=== PATIENT | female | born 1985 | race Caucasian/White ===

== ENCOUNTER 2022-06-28 13:47 | Outpatient (CLI) | payer BC, SELFPAY ==
--- OUTSIDE RECORDS SUMMARY | 2022-06-28 13:50 | XMS_ITS ---
:1985 Author Care Team Providers Name Role Phone Ledy Riley Primary Care Provider Unavailable Allergies Code Code System Name Reaction Severity Status Onset NKDA ? Medications No Medications Reported Problems No Known Problems Procedures None recorded. Results Lab Results Date Name Specimen Result Interpretation Description Value Range Status Address ? 02/14/2021 SARS CoV 2 RNA, Nose (nasal ? Result negative ? ? [facility] QL, KRISSY+probe, passage) [facility] [place]: [address] , [place] Past Encounters 02/14/2021 Exposure to SARS-CoV-2; Acute Upper Resp iratory Infection Ledy Riley PA-C: [address], [place] [address], Ph. Social History None recorded. Vaccine List None recorded. Plan of Care Patient Instructions Discussed rapid covid results with alexia ent. Patient appears well, no immediate concerns. Patient understands and agrees with treatment plan and instructions. Symptom management discussed to continue OTC cough/cold medications as needed. Medication side effects discussed. Discu ssed risks? benefits? alternatives? side effects of treatment. If symptoms progre ss or worsen, patient should proceed to the emergency room immediately. All question s answered. Reminders Provider Appointments None recorded. ? ? Lab None recorded. ? ? Referral None recorded. ? ? Procedures None recorded. ? ? Surgeries None recorded. ? ? Imaging None recorded. ? ? Vitals Blood Pressure 114/83 mm[Hg]
--- NOTE | 2022-06-28 14:00 | CRLHL7_ITS ---
For Patients: As a result of the Century Cures Act, medical imaging exams and procedure reports are released immediately into your electronic medical record. You may view this report before your referring provider. If you have questions, please contact your health care provider. INDICATION: First trimester scan, establish dates. COMPARISON: None. TECHNIQUE: Real-time frederick-scale imaging of the pelvis was performed. FINDINGS: Intrauterine gestational sac is present with mean sac diameter 19 millimeters corresponding to a 6 week 5 day gestation. pole is present with crown-rump length 5 millimeters. No heart tones. No subchorionic hemorrhage. No ectopic . No pelvic free fluid. scar noted. Right ovary unremarkable. Left ovary not visualized. IMPRESSION: Intrauterine with pole present measuring 5 millimeters without heart tones. Follow-up in 11-14 days recommended. Dictated by Lopez Pyle MD @ 06/28/2022 4:13:42 PM (Electronically Signed)
== END 2022-06-28 13:48 | disposition home or self-care (01) ==
LOC: US 13:48
PROVIDERS: PCP Family Medicine; Visit Provider Registered Nurse
DX: Z34.91 Encounter for supervision of normal pregnancy, unspecified, first trimester (principal)
CPT/HCPCS: 76817; 81003; 81015; 84702

== ENCOUNTER 2022-06-28 15:32 | Outpatient (CLI) | payer BC, SELFPAY ==
--- OUTSIDE RECORDS SUMMARY | 2022-06-28 15:36 | XMS_ITS ---
[...] [facility] QL, KRISSY+probe, passage) [facility] [place]: [address] , [place] Past Encounters 02/14/2021 Exposure to SARS-CoV-2; Acute Upper Resp iratory Infection Ledy Riley PA-C: [address], [place] [address], Ph. Social History None recorded. Vaccine List [...]
[2022-06-28 16:20] LABS: Appearance Urine Clear (Clear); Bilirubin Urine Negative (Negative); Blood Urine 3+ (Negative); Color Urine Yellow (Yellow); Glucose Urine Negative (Negative); Ketones Urine Negative (Negative); Leukocyte Esterase Urine Trace (Negative); Nitrite Urine Negative (Negative); Protein Urine Negative (Negative)
[2022-06-28 16:25] LABS: WBC Urine 0-2 (0-5)
[2022-06-28 16:26] LABS: Bacteria Urine Few; Squamous Epithelial Cell Urine Few (None-Few)
== END 2022-06-28 15:33 | disposition home or self-care (01) ==
PROVIDERS: PCP Family Medicine; Visit Provider Registered Nurse
DX: O20.9 Hemorrhage in early pregnancy, unspecified (principal); R82.90 Unspecified abnormal findings in urine
CPT/HCPCS: 81003; 81015; 84702; 86850; 86900; 86901; 87086

== ENCOUNTER 2022-06-30 13:00 | Outpatient (CLI) | payer BC, SELFPAY ==
--- OUTSIDE RECORDS SUMMARY | 2022-06-30 13:01 | XMS_ITS ---
[...] [facility] QL, KRISSY+probe, passage) [facility] [place]: [address] , [place] Past Encounters 02/14/2021 Exposure to SARS-CoV-2; Acute Upper Resp iratory Infection Ledy Riley PA-C: [address], [place] [address], Ph. Social History None recorded. Vaccine List [...]
== END 2022-06-30 13:01 | disposition home or self-care (01) ==
LOC: NFLDREF 13:00
PROVIDERS: PCP Family Medicine; Visit Provider Registered Nurse
DX: O20.9 Hemorrhage in early pregnancy, unspecified (principal)
CPT/HCPCS: 84702

== ENCOUNTER 2022-07-07 13:14 | Outpatient (CLI) | payer BC, SELFPAY ==
--- OUTSIDE RECORDS SUMMARY | 2022-07-07 13:34 | XMS_ITS ---
[...] [facility] QL, KRISSY+probe, passage) [facility] [place]: [address] , [place] Past Encounters 02/14/2021 Exposure to SARS-CoV-2; Acute Upper Resp iratory Infection Ledy Riley PA-C: [address], [place] [address], Ph. Social History None recorded. Vaccine List [...]
[2022-07-07 15:11] LABS: HCG Quantitative* 76.97 mIU/mL
== END 2022-07-07 13:15 | disposition home or self-care (01) ==
LOC: NFLDREF 13:15
PROVIDERS: PCP Family Medicine; Visit Provider Registered Nurse
DX: O03.9 Complete or unspecified spontaneous abortion without complication (principal)
CPT/HCPCS: 84702

== ENCOUNTER 2022-07-14 11:54 | Outpatient (CLI) | payer BC, SELFPAY ==
[2022-07-14 15:36] LABS: HCG Quantitative* 10.62 mIU/mL
== END 2022-07-14 11:55 | disposition home or self-care (01) ==
LOC: NFLDREF 14:25
PROVIDERS: PCP Family Medicine; Visit Provider Registered Nurse
DX: O03.9 Complete or unspecified spontaneous abortion without complication (principal)
CPT/HCPCS: 84702

== ENCOUNTER 2022-10-13 14:13 | Outpatient (CLI) | payer BC, SELFPAY ==
[2022-10-13 18:02] LABS: Cholesterol* 220 mg/dL (90-199); Glucose* 98 mg/dL (60-115)
[2022-10-13 18:03] LABS: HDL Cholesterol* 42 mg/dL (>=50); LDL Cholesterol Calculated 144 mg/dL (<100); Triglycerides* 169 mg/dL (40-149)
== END 2022-10-13 14:14 | disposition home or self-care (01) ==
PROVIDERS: PCP Family Medicine; Visit Provider Registered Nurse
DX: Z01.419 Encounter for gynecological examination (general) (routine) without abnormal findings (principal); R53.83 Other fatigue; Z13.6 Encounter for screening for cardiovascular disorders; Z13.1 Encounter for screening for diabetes mellitus
CPT/HCPCS: 80061; 82947; 84443

== ENCOUNTER 2022-10-25 18:00 | Emergency (ER) | payer BC, SELFPAY ==
[2022-10-25 18:28] VITALS: BP 171/77; PULSE 94; RESP 20; TEMP 36.9; O2SAT 100; BMI 32.4
[2022-10-25 19:34] VITALS: BP 142/87; PULSE 85; RESP 18; O2SAT 100
[2022-10-25 21:04] VITALS: BP 127/73; BP 144/95; BP 147/101; PULSE 101; PULSE 105; PULSE 98
[2022-10-25 21:17] LABS: Basophils Absolute Auto 0.01 K/uL (0.00-0.30); Basophils Percent Auto 0.1 % (0.0-3.0); Eosinophils Absolute Auto 0.11 K/uL (0.00-0.50); Eosinophils Percent Auto 1.5 % (0.0-7.0); Hematocrit 44.1 % (33.0-51.0); Hemoglobin* 14.5 gm/dL (12.0-16.0); Immature Granulocytes Abs Auto 0.01 K/uL (0.00-0.30); Immature Granulocytes Pct Auto 0.1 %; Lymphocytes Percent Auto 16.8 % (20-44); Mean Corpuscular HGB Conc 33 gm/dL (32-36); Mean Corpuscular Hemoglobin 28 pg (26-34); Mean Corpuscular Volume 87 fL (80-100); Monocytes Percent Auto 5.1 % (0.0-11.0); Neutrophils Percent Auto 76.4 % (42.0-72.0); Platelet Count* 274 K/uL (140-440); RDW Coefficient of Variation % 12.9 % (11.5-15.5); White Blood Count* 7.43 K/uL (4.50-11.00)
[2022-10-25] MEDS: 0.9 % SODIUM CHLORIDE 1000 ml 1,000 ML IV (21:18)
[2022-10-25 21:19] LABS: Slide Review Reflex No
--- NOTE | 2022-10-25 21:20 | ED.NURSE ---
RADAR ENGINEER swab
[2022-10-25 21:31] LABS: Chloride* 102 mmol/L (96-114); Potassium* 3.7 mmol/L (3.6-5.1); Sodium* 140 mmol/L (135-149)
[2022-10-25 21:34] LABS: Creatinine* 0.6 mg/dL (0.5-1.5); Est. Creatinine Clearance* 106.19; Estimated Glomerular Filt Rate 118 ml/min
[2022-10-25 21:35] LABS: Bilirubin Direct* 0.2 mg/dL (0.0-0.5); Bilirubin Total* 0.6 mg/dL (0.1-1.5); Blood Urea Nitrogen* 11 mg/dL (5-24); Calcium* 9.8 mg/dL (8.4-10.6); Carbon Dioxide* 29 mmol/L (20-32); Glucose* 110 mg/dL (60-115); Total Protein* 9.2 g/dL (6.0-8.3)
[2022-10-25 21:36] LABS: Alanine Aminotransferase* 29 U/L (4-35); Alkaline Phosphatase* 70 U/L (40-150); Aspartate Amino Transferase* 27 U/L (12-35)
[2022-10-25 21:42] LABS: Appearance Urine Clear (Clear); Bilirubin Urine Negative (Negative); Blood Urine Negative (Negative); Color Urine Yellow (Yellow); Glucose Urine Negative (Negative); Ketones Urine Negative (Negative); Leukocyte Esterase Urine Trace (Negative); Nitrite Urine Negative (Negative); Protein Urine Negative (Negative); Specific Gravity Urine 1.015 (1.000-1.030); Urobilinogen Urine 0.2 (0.2-1.0); pH Urine 6.5 (5.0-8.5)
[2022-10-25 21:47] LABS: HCG Qualitative* Negative (Negative)
[2022-10-25 21:47] LABS: C Reactive Protein* < 0.5 mg/dL (0.5-1.0)
[2022-10-25 21:53] LABS: PCR FLU A Negative PCR FLU A (Negative); PCR FLU B Negative PCR FLU B (Negative)
[2022-10-25 21:56] LABS: RBC Urine 0-2 (0-2)
[2022-10-25 21:56] LABS: SARS PCR* Negative SARS-CoV-2 (Negative)
--- NOTE | 2022-10-25 22:44 | ED_ITS ---
HPI - General Adult General Chief complaint: Neck Injury/Pain Stated complaint: Dizziness/Neck Pain Time Seen by Provider: 10/25/22 20:31 History of Present Illness HPI narrative: 36-year-old woman here with a number of concerns. It seems that I believe today has started to have more discomfort in her low neck. She indicates the low neck musculature where she will turn and feel like maybe something shifts a little bit. She is worried about a slipped disc. There was no traumatic event beyond something maybe 10 years ago. Does also struggle with ?sciatica? with some aching pain somewhat in the right buttock and down the back of thigh and there was a more remote believe in high school dance injury. Has been struggling with fatigue I believe on and off for the last 3 years perhaps since the murder of her brother. Became sick at the end of last year with a variety of illnesses; she thinks she probably did have COVID maybe influenza or something else but was never tested. She is not vaccinated for COVID it appears due to concerns of potential vaccine reaction or side effects. Over the last few weeks she is also experiencing intermittent weakness in the extremities. Sounds like it is symmetrical. Some tingliness or weakness in her thighs. Sounds like is worried that might have MS. The there is no family history of this. Regarding the neck issue may have been exacerbated by holding her 1-year-old in a car seat. It appears that also has some concerns that might have meningitis. Doesn't have a headache at this time but did recently have a headache. No focal weakness or radiating down her arms. Not exactly dizziness but as if has been on the gravitron; a subtle sense of dizziness intermittently for many weeks. Fever. She does no seen by primary care yesterday. Unclear what labs were actually collected but does believe at least TSH was. Sounds as though there will be exploring some alternative medicine and potentially treatment evaluation as well. Is worried also that might have a urinary tract infection though would consider herself asymptomatic in that regard though sounds as though has chronic urgency. Related Data Home Medications Medication Instructions Recorded Confirmed No Known Home Medications 10/13/22 10/13/22 Allergies Allergy/AdvReac Type Severity Reaction Status Date / Time bupropion AdvReac Intermediate Insomnia Verified 10/13/22 13:21 olanzapine AdvReac Unknown Verified 01/06/23 13:21 Dust mites Allergy Intermediate SOB, runny Uncoded 10/13/22 13:21 nose Cat hair extract Allergy Mild runny nose Uncoded 10/13/22 13:21 Pollen Allergy Mild ears hurt Uncoded 10/13/22 13:21 tree mold Allergy Mild ear pain Uncoded 10/13/22 13:21 Review of Systems Status of ROS: Reports: 10 or more systems reviewed and unremarkable except as noted in History and below [facility] Medical History Anxiety state (08/10/11) Frequent urinary tract infections (10/31/10) Major depressive disorder, recurrent, with catatonic features Miscarriage MRSA (methicillin resistant staph aureus) culture positive White classification A2 gestational diabetes mellitus (GDM) Surgical History History of cholecystectomy History of varicose vein ligation Status post primary low transverse section (10/14/21) Vaginal delivery [place] teeth extracted Family History Mother Heart disease Bleeding disorder High blood pressure Maternal Grandmother Stroke FH: mental illness Paternal Grandmother No problems noted. Paternal Grandfather Stomach cancer Maternal Grandfather Bleeding disorder High blood pressure Aunt Bleeding disorder Uncle High blood pressure Brother Abuse, drug or alcohol Social History Smoking Status: Former smoker Second hand tobacco smoke exposure: No How often do you have a drink containing alcohol: never AUDIT-C Alcohol total score: 0 Non-prescribed substance use: denies use Little interest or pleasure in doing things: not at all Feeling down, depressed, or hopeless: not at all Exam Narrative: Exam Narrative: Is pleasant. Speaking easily, fluidly. Breathing easily. Head is atraumatic. Cranial nerves 2-12 look to be intact. There is no nystagmus. No meningeal signs are evident. Not clearly able to reproduce dizziness. TMs bilaterally are clear. Neck is supple without midline tenderness. Perhaps a little sore to palpation in the right low paracervical/trapezial musculature. She has no weakness in extremities with intact sensation. Well perfused peripherally without lower extremity edema. Heart with a regular rate and rhythm. Abdomen is soft and nontender. There is no flank pain. There is no pain to palpation in the SI joint. Some discomfort perhaps to palpation in the right piriformis musculature area. Const: Vital Signs, click to edit/add: Vital Signs - 24 hr 10/25/22 18:28 10/25/22 19:34 10/25/22 21:04 Temperature 98.5 F Pulse Rate [Pulse Oximeter] 94 85 Pulse Rate [orthos tatic lying Pulse Oximeter] 98 Pulse Rate [orthos tatic sitting Puls e Oximeter] 101 H Pulse Rate [orthos tatic standing Pul se Oximeter] 105 H Respiratory Rate 20 18 Blood Pressure [Ri ght Upper Arm] 171/77 H 142/87 H Blood Pressure [or thostatic lying Ri ght Arm] 127/73 Blood Pressure [or thostatic sitting Right Arm] 144/95 H Blood Pressure [or thostatic standing Right Arm] 147/101 H Pulse Oximetry 100 100 Oxygen Delivery Me thod Room Air Room Air 10/25/22 23:00 Temperature Pulse Rate [Pulse Oximeter] Pulse Rate [orthos tatic lying Pulse Oximeter] 85 Pulse Rate [orthos tatic sitting Puls e Oximeter] 86 Pulse Rate [orthos tatic standing Pul se Oximeter] 91 Respiratory Rate Blood Pressure [Ri ght Upper Arm] Blood Pressure [or thostatic lying Ri ght Arm] 133/80 Blood Pressure [or thostatic sitting Right Arm] 131/85 Blood Pressure [or thostatic standing Right Arm] 139/89 Pulse Oximetry Oxygen Delivery Me thod Documenting provider has reviewed patient's vital signs: yes Course Vital Signs Vital signs: Initial Vital Signs Temperature 98.5 F 10/25/22 18:28 Temperature Source Temporal Artery Scan 10/25/22 18:28 Pulse Rate 94 10/25/22 18:28 Respiratory Rate 20 10/25/22 18:28 Blood Pressure 171/77 H 10/25/22 18:28 Blood Pressure Mean 108 10/25/22 18:28 Blood Pressure Position Sitting 10/25/22 18:28 Pulse Oximetry 100 10/25/22 18:28 Oxygen Delivery Method 10/25/22 18:28 Vital Signs Temperature 98.5 F 10/25/22 18:28 Pulse Rate 94 10/25/22 18:28 Respiratory Rate 20 10/25/22 18:28 Blood Pressure 171/77 H 10/25/22 18:28 Pulse Oximetry 100 10/25/22 18:28 Oxygen Delivery Method 10/25/22 18:28 Temperature 98.5 F 10/25/22 18:28 Pulse Rate 85 10/25/22 23:00 Respiratory Rate 18 10/25/22 19:34 Blood Pressure 133/80 10/25/22 23:00 Pulse Oximetry 100 10/25/22 19:34 Oxygen Delivery Method 10/25/22 19:34 Medical Decision Making MDM Narrative Medical decision making narrative: Number symptoms of unclear etiology I would say. Does appear to have some aspect of chronic fatigue. 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 I think all symptoms are amplified here by some degree of anxiety. This was discussed. I am not able to definitively able to rule out some of her concerns like MS. We can do some lab work here today expanding on what may have been drawn in clinic yesterday. Would need to follow up with clinic for further workup for fatigue. Check for COVID if antibodies still remain. She would like some IV hydration, I think that is reasonable as might help with some energy. Collect also urinalysis. Lab results were generally unremarkable. There is some possible evidence of cystitis. Without more symptoms I would wait for urine culture. Lab Data Lab results reviewed: Yes I reviewed the patient's lab results Labs: Lab Results 10/25/22 10/25/22 10/25/22 Range/Units 20:53 21:00 21:10 WBC 7.43 (4.50-11.00) K/uL RBC 5.10 (4.00-5.20) m/uL Hgb 14.5 (12.0-16.0) gm/dL Hct 44.1 (33.0-51.0) % MCV 87 (80-100) fL MCH 28 (26-34) pg MCHC 33 (32-36) gm/dL RDW Coeff of Estrada 12.9 (11.5-15.5) % Plt Count 274 (140-440) K/uL Neut % (Auto) 76.4 H (42.0-72.0) % Lymph % (Auto) 16.8 L (20-44) % [place] % (Auto) 5.1 (0.0-11.0) % Eos % (Auto) 1.5 (0.0-7.0) % Baso % (Auto) 0.1 (0.0-3.0) % Neut # (Auto) 5.70 (1.7-7.0) K/uL Lymph # (Auto) 1.20 (0.90-2.90) K/uL [place] # (Auto) 0.40 (0.00-0.90) K/UL Eos # (Auto) 0.11 (0.00-0.50) K/uL Baso # (Auto) 0.01 (0.00-0.30) K/uL Sodium (135-149) mmol/L Potassium (3.6-5.1) mmol/L Chloride (96-114) mmol/L Carbon Dioxide (20-32) mmol/L BUN (5-24) mg/dL Creatinine (0.5-1.5) mg/dL Estimated Creat Clear Estimated GFR ml/min Glucose (60-115) mg/dL Calcium (8.4-10.6) mg/dL Total Bilirubin (0.1-1.5) mg/dL Direct Bilirubin (0.0-0.5) mg/dL AST (12-35) U/L ALT (4-35) U/L Alkaline Phosphatase (40-150) U/L C-Reactive Protein (0.5-1.0) mg/dL Total Protein (6.0-8.3) g/dL Albumin (3.3-5.0) g/dL HCG, Qual Negative (Negative) Urine Color Yellow (Yellow) Urine Appearance Clear (Clear) Urine pH 6.5 (5.0-8.5) Ur Specific [place] 1.015 (1.000-1.030) Urine Protein Negative (Negative) Urine Glucose (UA) Negative (Negative) Urine Ketones Negative (Negative) Urine Blood Negative (Negative) Urine Nitrite Negative (Negative) Urine Bilirubin Negative (Negative) Urine Urobilinogen 0.2 (0.2-1.0) Ur Leukocyte Esterase Trace A (Negative) Urine RBC 0-2 (0-2) Urine WBC 5-10 A (0-5) Ur Squamous Epith Cells None (None-Few) Urine Bacteria None (None) SARS-CoV-2 (PCR) (Negative) Influenza Type A (PCR) (Negative) Influenza Type B (PCR) (Negative) 10/25/22 10/25/2223 Range/Units 21:10 21:10 21:10 WBC (4.50-11.00) K/uL RBC (4.00-5.20) m/uL Hgb (12.0-16.0) gm/dL Hct (33.0-51.0) % MCV (80-100) fL MCH (26-34) pg MCHC (32-36) gm/dL RDW Coeff of Estrada (11.5-15.5) % Plt Count (140-440) K/uL Neut % (Auto) (42.0-72.0) % Lymph % (Auto) (20-44) % [place] % (Auto) (0.0-11.0) % Eos % (Auto) (0.0-7.0) % Baso % (Auto) (0.0-3.0) % Neut # (Auto) (1.7-7.0) K/uL Lymph # (Auto) (0.90-2.90) K/uL [place] # (Auto) (0.00-0.90) K/UL Eos # (Auto) (0.00-0.50) K/uL Baso # (Auto) (0.00-0.30) K/uL Sodium 140 (135-149) mmol/L Potassium 3.7 (3.6-5.1) mmol/L Chloride 102 (96-114) mmol/L Carbon Dioxide 29 (20-32) mmol/L BUN 11 (5-24) mg/dL Creatinine 0.6 (0.5-1.5) mg/dL Estimated Creat Clear 106.19 Estimated GFR 118 ml/min Glucose 110 (60-115) mg/dL Calcium 9.8 (8.4-10.6) mg/dL Total Bilirubin 0.6 (0.1-1.5) mg/dL Direct Bilirubin 0.2 (0.0-0.5) mg/dL AST 27 (12-35) U/L ALT 29 (4-35) U/L Alkaline Phosphatase 70 (40-150) U/L C-Reactive Protein < 0.5 L (0.5-1.0) mg/dL Total Protein 9.2 H (6.0-8.3) g/dL Albumin 5.0 (3.3-5.0) g/dL HCG, Qual (Negative) Urine Color (Yellow) Urine Appearance (Clear) Urine pH (5.0-8.5) Ur Specific [place] (1.000-1.030) Urine Protein (Negative) Urine Glucose (UA) (Negative) Urine Ketones (Negative) Urine Blood (Negative) Urine Nitrite (Negative) Urine Bilirubin (Negative) Urine Urobilinogen (0.2-1.0) Ur Leukocyte Esterase (Negative) Urine RBC (0-2) Urine WBC (0-5) Ur Squamous Epith Cells (None-Few) Urine Bacteria (None) SARS-CoV-2 (PCR) Negative SARS-CoV-2 (Negative) Influenza Type A (PCR) Negative PCR FLU A (Negative) Influenza Type B (PCR) Negative PCR FLU B (Negative) Discharge Plan Discharge Clinical Impression: Anxiety, Malaise and fatigue Patient Disposition: Home w/ Parent or Adult Condition: Improved Additional Instructions: I have not seen anything that appears to be dangerous in your condition here today. Anxiety I think is contributing to some of your symptoms though further investigation I think is warranted. I would follow up yet with your primary care provider to pursue more deeply what might be going on. Stay well-hydrated. Try to get a little heart pumping exercise in daily. Try to get regular and quality sleep. See handout on stretches for upper back and lower back that I think might benefit you daily. Was a pleasure caring for you here. Prescriptions: No Action No Known Home Medications Follow Up/Referrals: Lopez Mao MD [Primary Care Provider] - Stand Alone Forms: [employer] Info Instructions
[2022-10-25 23:00] VITALS: BP 131/85; BP 133/80; BP 139/89; PULSE 85; PULSE 86; PULSE 91
== END 2022-10-25 23:24 | disposition home or self-care (01) ==
PROVIDERS: Emergency Provider Family Medicine; PCP Family Medicine
DX: F41.9 Anxiety disorder, unspecified (principal); R53.83 Other fatigue; R53.81 Other malaise
CPT/HCPCS: 36415; 80048; 80076; 81001; 84703; 85025; 86140; 87086; 87631; 96360; 99284; J7030

== ENCOUNTER 2023-01-04 08:15 | Outpatient (RCR) | payer BC, SELFPAY | END 2023-01-09 16:39 | disposition home or self-care (01) | PROVIDERS: PCP Family Medicine; Visit Provider Family Medicine | DX: M54.2 Cervicalgia (principal); M25.559 Pain in unspecified hip; Z51.89 Encounter for other specified aftercare | CPT/HCPCS: 97110; 97140; 97162; 97535 ==

== ENCOUNTER 2024-12-12 17:34 | Outpatient (CLI) | payer SELFPAY | END 2024-12-12 17:35 | disposition home or self-care (01) | LOC: NFLDREF 12-16 06:35 | PROVIDERS: PCP Family Medicine; Referring Provider Family Medicine; Visit Provider Physician Assistant | DX: R30.0 Dysuria (principal) | CPT/HCPCS: 87086 ==

== ENCOUNTER 2024-12-18 14:31 | Emergency (ER) | payer OTHER, SELFPAY ==
--- OUTSIDE RECORDS SUMMARY | 2024-12-18 14:33 | XMS_ITS | Clinical Summary ---
Author Organization [facility] [employer] [facility] Address [facility] [place] [address] Care Team Providers Care Hand Alterations Tailor Name Role Phone Josee, Ailyn Solorzano MD Primary Care Provider Allergies Active Allergy Reactions Criticality Noted Date Comments Cats (Fur, Dander, Saliva) Runny Nose 7 Dust Mites Shortness Of Breath,Runny Nose 06/28/2007 Homeopathic Products 06/28/2007 ears hurt Medications medication order composer SAD light, 10.000 lux over 30 minutes daily. DIAGNOSIS: SAD 1 unit 0 01/19/2015 Active Active Problems Problem Noted Date Diagnosed Date GERD (gastroesophageal reflux disease) 9 Normal in multigravida 06/15/2015 Overview (11/23/2015): Hx of delivery, will need 250 mg weekly IM hydroxyprogesterone starting at 16 weeks. Low lying placenta on 20 week ultrasound, resolved on ultrasound on 11/01/15 It's a girl! Declines TDaP until after devliery Environmental allergies 02/16/2015 Major depressive disorder, s abby episode, severe, specified as with psychotic behavior 09/23/2011 Anxiety state, unspecified 08/10/2011 Recurrent UTI 10/31/2010 Resolved Problems Problem Noted Date Diagnosed Date Resolved Date Spontaneous vaginal delivery 05/25/2012 06/02/2013 Premature rupture of membranes - delivered 05/25/2012 06/02/2013 Assessment & Plan (06/03/2012 7:44 PM CDT): She might benefit from prophylactic progesterone in future pregnancies per note dated 05/24/2012 discharge summary 33-34 completed weeks of gestation(765.27) 05/25/2012 06/02/2013 PROM (premature rupture of membranes) 05/24/2012 05/25/2012 High-risk 05/24/2012 06/02/20 13 Adjustment disorder with depressed mood 01/18/2012 11/25/2014 Supervision of normal first 12/21/2011 06/02/2013 Assessment & Plan (02/20/2012 9:50 AM CDT): Its a girl Bipolar disorder 08/10/2011 10/10/2011 Grief 08/10/2011 05/24/2012 Abdominal pain, unspecified site 10/31/2010 05/24/2012 Overview (11/18/2010): EGD 11/2010 normal Routine general medical exam ination at a health care facility 12/24/2007 05/24/2012 Overview (12/24/2007): Lipids - Never Dexa- Never mammo-Never Colon - Never Pap/pelvic -06-28-07 Thyroid- 06-28-07 Hep B-05-28-01, 07-30-01 Qvsjwbw-55-23-07 Other acne 06/28/2007 05/24/2012 Other ill-defined disorder of eye 06/05/2006 05/24/2012 Immunizations Immunization Administration Dates Next Due Hepatitis A (Adult) 12/24/2007 Hepatitis B (Adult) 03/05/2008 Hepatitis B (Peds) 07/30/2001,05/28/2001 Human Papilloma Virus Vaccine 03/05/2008, 007,06/28/2007 2007 Influenza, IIV3 (Age >=3 years) 12/21/2011,12/23 MMR 05/07/1997 Meningococcal Vaccine 10/06/2003 Tdap 09/04/2007 Family History Medical History Relation Name Comments Hyperlipidemia Maternal Aunt Heart Disease Maternal Grandfather Hypertension Maternal Grandfather Other Maternal Grandmother embolis m Psychiatric illness Maternal Grandmother depression Heart Disease Maternal Uncle stents place d Heart Disease Mother ME Hypertension Mother Other Paternal Grandfather alzthim ers Diabetes Paternal Uncle Relation Name Status Comments Brother Alive x1 Father Alive Maternal Aunt Maternal Grandfather Alive Maternal Grandmother (Age 86) Maternal Uncle Mother (Age 59) ME, pulmon nemesio embolism Paternal Grandfather (Age 80's) dementa Paternal Grandmother (Age 80's) heart break- dying Paternal Uncle Social History Tobacco Use Types Packs/Day Years Used Date Smoking Tobacco: Former Cigarettes 0.5 1 0 10/27/2004 - 10/27/2005 Smokeless Tobacco: Never Tobacco Cessation:Counseling Given: No Alcohol Use Standard Drinks/Week Comments No 0 (1 standard drink = 0.6 oz pur e alcohol) PHQ-2 Answer Date Recorded PHQ-2 TOTAL SCORE 0 08/29/2023 Social Connections Answer Date Recorded Frequency of Communication with Friends and Fami ly Not on file 08/20/2023 Comments No Sex and Gender Information Value Date Recorded Sex Assigned at Not on file Legal Sex Female 5:26 AM DECOMMISSIONING WELL SITE MANAGER Gender Identity Not on file Sexual Orientation Not on file Occupation Industry Job Start Date Job End Date student Not on file Not on file Not on file Obstetrics History Para Term AB IAB SAB Ectopic Multiple Livin g Live Births 2 1 0 1 0 0 0 0 0 1 1 Date Outcome GA Total Labor Labor/2nd/3rd Weight Sex Type Anes PTL Rebecca A1 A5 Name Clin 012 33w 4d F Vag Living 8 9 [facility] ([facility] ) Delivery Location:[facility] Last Filed Vital Signs Vital Sign Reading Time Taken Comments Blood Pressure 108/69 08/29/2023 10:02 AM DECOMMISSIONING WELL SITE MANAGER Pulse 80 08/29/2023 10:02 AM DECOMMISSIONING WELL SITE MANAGER Temperature 36.8 C (98.2 F) 08/20/2023 9:13 AM DECOMMISSIONING WELL SITE MANAGER Respiratory Rate 18 08/28/2019 6:36 AM DECOMMISSIONING WELL SITE MANAGER Oxygen Saturation 98% 08/29/2023 10:02 AM DECOMMISSIONING WELL SITE MANAGER Inhaled Oxygen Concentration - - Weight 87 kg (191 lb 12.8 oz) 08/29/2023 10:02 A M DECOMMISSIONING WELL SITE MANAGER Height 159.4 cm (5' 2.75) 08/29/2023 10:[address] Body Mass Index 34.25 08/29/2023 10:02 AM DECOMMISSIONING WELL SITE MANAGER Plan of Treatment Health Maintenance Due Date Last Done Comments Tetanus booster 09/04/2017 09/04/2007 Pap test for age 21-65 04/12/2024 , 04/12/2021, 06/05/2013, Additional history exists COVID-19 vaccine series ( season) 2024 Influenza Vaccine (#1) 2024 12/21/2011, 2007 BMI (ht and wt on same day) for age 18+ 08/29/2024 08/29/2023, 01/10/2016, 12/20/2015 Depression screening for age 12+ 08/29/2024 08/29/2023, 08/29/2019, 08/14/2019, Additional history exists Tdap Completed 09/04/2007 Hepatitis C screening for age 18-79 Completed 10/15/2010, 06/28/2007 HIV for age 15-65 Completed 06/15/2015, , 12/08/2011, Additional history exists Pneumococcal series for age 6-49 Aged Out No longer eligible based on patient's age to complete this topic Procedures Procedure Name Priority Date/Time Associated Diagnosis Comments PORTRAIT PHOTOGRAPHER THIN PREP PAP SCREEN IMAGED Routine 04/12/2021 2:30 PM CDT ANTI HIV 1/2 Routine 06/15/2015 2:28 PM CDT Encounter for supervision of other normal in first trimester ANTI HCV Routine 10/15/2010 12:09 PM DECOMMISSIONING WELL SITE MANAGER Vaginal irritation from Last 3 Months or Most Recently Relevant to Health Maintenance Results * PORTRAIT PHOTOGRAPHER THIN PREP PAP SCREEN IMAGED (04/12/2021 2:30 PM CDT) Case Report Gynecologic Cytology Report Case: [id number] Authorizing Provider: Andreina Pelaez Collected: 04/12/2021 1430 MMD Ordering Location: [facility] Received: 04/14/2021 1003 First Screen: Abigail Le Specimen: PORTRAIT PHOTOGRAPHER ThinPrep Vial Screening, Cervical/Vaginal 04/22/2021 12:07 PM CDT [facility] INTERPRETATION/ RESULT NEGATIVE FOR INTRAEPITHELIAL LESION OR MALIGNANCY (NIL) (none) 04/22/2021 12:07 PM CDT [facility] IMEN ADEQUACY Satisfactory for evaluation Endocervical component present 04/22/2021 12:07 PM CDT [facility] HPV REQUEST HPV and PAP 04/22/2021 12:07 PM CDT [facility] Date of LMP 01/28/2021 04/22/2021 12:07 PM CDT [facility] Menstrual Status 04/22/2021 12:07 PM CDT [facility] Additional Information 04/22/2021 12:07 PM CDT [facility] Comment: Interpreted at [facility] - [address], [place] [address] Automated Review Successful 04/22/2021 12:07 PM CDT [facility] Comment:Specimen processed s uccessfully by automated real estate coordinator device, ThinPrep Imaging System, [employer] ANCILLARY TESTING PORTRAIT PHOTOGRAPHER HPV Ordered, Please see separate report 04/22/2021 12:07 PM CDT [facility] Note The pap test is a screening technique, not a diagnostic procedure. It is used primarily to screen for squamous cancers and precursor lesions. Published studies have shown that it is subject to both false negative and false positive results. The pap test should not be used as the sole means to diagnose or exclude pre-malignant and malignant lesions. 04/22/2021 12:07 PM CDT [facility] Other (Cervical/Vagina l) 04/12/2021 2:30 PM CDT 04/14/2021 10:03 AM CDT us Andreina Pelaez MD PATHOLOGY/CYTOLOGY Final Result [facility] [address] [place] [address], [place] * ANTI HIV 1/2 (06/15/2015 2:28 PM CDT) HIV-1/HIV-2 ANTIBODY Non-Reacti ve Non-Reacti ve 06/15/2015 7:48 PM CDT [facility] Blood specimen (specimen) BLOOD SPECIMEN / Unknown Venipuncture / Unknown 06/15/2015 2:28 PM CDT 06/15/2015 2:28 PM CDT Narrative [facility] 06/15/2015 7:48 PM CDT HIV-1 p24 and HIV-1/HIV-2 Ab not detected us Elsie Jack ENDOSCOPY SPECIALTY TECHNICIAN SEND OUTS F inal Result [facility] [address] [place] [address], [place] * ANTI HCV (10/15/2010 12:09 PM DECOMMISSIONING WELL SITE MANAGER) ANTI HCV Non-reacti ve [facility] Blood specimen (specimen) BLOOD SPECIMEN / Unknown 10/15/2010 12:09 PM DECOMMISSIONING WELL SITE MANAGER 10/15/2010 11:59 AM DECOMMISSIONING WELL SITE MANAGER us Husam Rodas DO SEND OUTS Final Res ult [facility] [place]NAL ZIP [address] [place] [address] from Last 3 Months or Most Recently Relevant to Health Maintenance Insurance [facility] Advance Directives Documents on File Type Date Recorded Patient Senior Enterprise Architect Expl anation Healthcare Directive 10/04/2011 * Full Code (Latest Code Status on File) Date Activated Date Inactivated Comments 08/14/2019 6:36 PM 08/28/2019 2:14 PM Question Answer Comments Code Status Discussion: Not Discussed * Full Code Date Activated Date Inactivated Comments 05/24/2012 11:35 AM 05/25/2012 1:49 AM * Full Code Date Activated Date Inactivated Comments 05/24/2012 9:14 AM 05/24/2012 11:35 AM * Full Code Date Activated Date Inactivated Comments 05/24/2012 9:09 AM 05/24/2012 9:14 AM * Full Code Date Activated Date Inactivated Comments 09/22/2011 11:27 PM 10/03/2011 7:41 PM Care Teams Hand Alterations Tailor Relationship Specialty Start Date End Date Ailyn Tripp [place] [address] [place] [address] PCP - General Family Practice 11/23/15
[2024-12-18 14:34] VITALS: BP 167/93; PULSE 98; RESP 16; TEMP 36.8; O2SAT 100; BMI 35.3
--- NOTE | 2024-12-18 15:02 | ED.GENADULT ---
HPI - General Adult General Chief complaint: Unspecified Complaint, Adult Stated complaint: dehydration, headache Time Seen by Provider: 12/18/24 14:49 History of Present Illness HPI narrative: This 38-year-old female comes in with nonspecific complaints of generalized malaise. She states that there is some extra stressors at home and she feels like it is hard to focus. She does report a headache and some aches and pains here and there. She was at urgent care within the past week and urinalysis was negative initially but culture did grow a pathogen which she was treated for. She is continuing take an antibiotic and states that she is feeling better in that regard. She arrives here with normal vital signs. Related Data Home Medications ?Medication ?Instructions ?Recorded ?Confirmed calcium 400 mg (as tab PO 11/03/22 12/12/24 carbonate)-magnesium 117 mg-vit C 167 mg tablet multivitamin (Daily Multi-Vitamin 1 tab PO QDAY 11/03/22 12/12/24 tablet) omega-3 fatty acids 1,250 mg 1,250 mg PO QDAY 11/03/22 12/12/24 capsule vitamin B12 500 mcg-folic acid 400 1 tab PO QDAY 11/03/22 12/12/24 mcg tablet Previous Rx's ?Medication ?Instructions ?Recorded lorazepam 0.5 mg tablet (Ativan) 0.5 mg PO BID PRN anxiety #20 tabs 11/03/22 nitrofurantoin 100 mg PO Q12H 5 days #10 caps 12/15/24 monohydrate/macrocrystals 100 mg capsule (Macrobid) cyclobenzaprine 10 mg tablet 10 mg PO TID #15 tabs 12/18/24 ketorolac 10 mg tablet 10 mg PO Q8H 5 days #15 tabs 12/18/24 ondansetron HCl 4 mg tablet 4 mg PO Q6H #10 tabs 12/18/24 Allergies Allergy/AdvReac Type Severity Reaction Status Date / Time dog dander Allergy Unknown Verified 12/18/24 14:41 bupropion AdvReac Intermediate Insomnia Verified 12/12/24 17:41 olanzapine AdvReac Unknown Verified 12/12/24 17:41 Dust mites Allergy Intermediate SOB, runny Uncoded 12/12/24 17:41 nose Cat hair extract Allergy Mild runny nose Uncoded 12/12/24 17:41 Pollen Allergy Mild ears hurt Uncoded 12/12/24 17:41 tree mold Allergy Mild ear pain Uncoded 12/12/24 17:41 Review of Systems Status of ROS: Reports: 10 or more systems reviewed and unremarkable except as noted in History and below Narrative: Constitutional: No fevers, no weight gain or loss. Eyes: No discharge. No vision changes. HENT: No congestion, no sore throat, no ear pain. Cardiovascular: No chest pain, no palpitations. Respiratory: No shortness of breath, no wheezes, no cough. Gastrointestinal: No abdominal pain, no vomiting, no diarrhea. Genitourinary: No dysuria, no hematuria. Musculoskeletal: Normal range of motion. Skin: No rashes, no pruritis. Neurological: No dizziness, weakness, sensory change, speech change. Endo/Heme/Allergies: No bruising or bleeding. No polydipsia. Pysch: no suicidality, no insomnia. All other systems reviewed and are negative. [facility] Medical History Toe fracture ?S92.919A - Unspecified fracture of unspecified toe(s), initial encounter for closed fracture (ICD-10) Generalized anxiety disorder ?F41.1 - Generalized anxiety disorder (ICD-10) MRSA (methicillin resistant staph aureus) culture positive ?Z22.322 - Carrier or suspected carrier of Methicillin resistant Staphylococcus aureus (ICD-10) Miscarriage ?O03.9 - Complete or unspecified spontaneous without complication (ICD-10) White classification A2 gestational diabetes mellitus (GDM) ?O24.419 - Gestational diabetes mellitus in , unspecified control (ICD-10) Major depressive disorder, recurrent, with catatonic features ?F33.9 - Major depressive disorder, recurrent, unspecified (ICD-10) ?F06.1 - Catatonic disorder due to known physiological condition (ICD-10) Frequent urinary tract infections (10/31/10) ?N39.0 - Urinary tract infection, site not specified (ICD-10) Surgical History Golden teeth extracted ?K08.409 - Partial loss of teeth, unspecified cause, unspecified class (ICD-10) Vaginal delivery ?O80 - Encounter for full-term uncomplicated delivery (ICD-10) Status post primary low transverse section (10/14/21) ?Z98.891 - History of uterine scar from previous surgery (ICD-10) History of varicose vein ligation ?Z98.890 - Other specified postprocedural states (ICD-10) ?Z86.79 - Personal history of other diseases of the circulatory system (ICD-10) History of cholecystectomy ?Z90.49 - Acquired absence of other specified parts of digestive tract (ICD-10) Family History Mother Heart disease Bleeding disorder High blood pressure Maternal Grandmother Stroke FH: mental illness Paternal Grandmother No problems noted. Paternal Grandfather Stomach cancer Maternal Grandfather Bleeding disorder High blood pressure Aunt Bleeding disorder Uncle High blood pressure Brother Abuse, drug or alcohol Social History Smoking Status: Former smoker Second hand tobacco smoke exposure: No How often do you have a drink containing alcohol: never AUDIT-C Alcohol total score: 0 Non-prescribed substance use: denies use Exam Narrative: Exam Narrative: Constitutional: Well-developed, well-nourished, no acute distress. HEENT: Normocephalic, atraumatic. Neck: Normal range of motion. Nontender. Supple. Heart: Regular. No murmurs. Normal rate. Intact distal pulses. Lungs: Clear to auscultation. No chest discomfort. No wheezes, rhonchi, or rales. Abdomen: Normal bowel sounds. Nontender. No rebound tenderness. Genitalia: Deferred. Back: No midline tenderness. Normal range of motion. Extremities: Normal range of motion. No injury. Skin: Intact. No rash. Warm. No erythema or pallor. Neurologic: No altered sensation. No weakness. Alert and oriented. Psychiatric: No suicidality. No anxiety or depression. No insomnia. Nursing notes and vitals signs are reviewed. Const: Vital Signs, click to edit/add: Vital Signs - 24 hr 12/18/24 14:34 Temperature 98.3 F Pulse Rate [Pulse Oximeter] 98 Respiratory Rate 16 Blood Pressure [Ri ght Upper Arm] 167/93 H Pulse Oximetry 100 Oxygen Delivery Me thod Room Air Course Vital Signs Vital signs: Initial Vital Signs Temperature 98.3 F 12/18/24 14:34 Temperature Source Temporal Artery Scan 12/18/24 14:34 Pulse Rate 98 12/18/24 14:34 Respiratory Rate 16 12/18/24 14:34 Blood Pressure 167/93 H 12/18/24 14:34 Blood Pressure Mean 117 H 12/18/24 14:34 Blood Pressure Position Sitting 12/18/24 14:34 Pulse Oximetry 100 12/18/24 14:34 Oxygen Delivery Method Room Air 12/18/24 14:34 Vital Signs Temperature 98.3 F 12/18/24 14:34 Pulse Rate 98 12/18/24 14:34 Respiratory Rate 16 12/18/24 14:34 Blood Pressure 167/93 H 12/18/24 14:34 Pulse Oximetry 100 12/18/24 14:34 Oxygen Delivery Method Room Air 12/18/24 14:34 Temperature 98.3 F 12/18/24 14:34 Pulse Rate 98 12/18/24 14:34 Respiratory Rate 16 12/18/24 14:34 Blood Pressure 167/93 H 12/18/24 14:34 Pulse Oximetry 100 12/18/24 14:34 Oxygen Delivery Method Room Air 12/18/24 14:34 Medications Administered Medications: Discontinued Medications Generic Name Dose Route Start Last Admin Trade Name Hoa PRN Reason Stop Dose Admin Sodium Chloride 500 mls @ 500 mls/hr 12/18/24 15:01 12/18/24 16:39 0.9 % Sodium Chloride 500 Ml IV 12/18/24 16:00 Infused .Q1H ONE Infusion Ketorolac Tromethamine 15 mg 12/18/24 15:30 12/18/24 15:26 Ketorolac 15 Mg/Ml Inj IVP 12/18/24 15:31 15 mg ONCE ONE Administration Medical Decision Making MDM Narrative Medical decision making narrative: This patient comes in with some nonspecific symptoms and states that she has been under extra stress lately. An IV was established where she received half a L of fluids and labs are acquired. Labs returned with reassuring findings. The patient also received an IV dose of Toradol. She states that she is feeling better and is okay to be discharged home. I did provide prescriptions for Toradol, Flexeril, and Zofran. Lab Data Labs: Lab Results 12/18/24 Range/Units 15:25 WBC 6.98 (4.50-11.00) K/uL RBC 5.20 (4.00-5.20) m/uL Hgb 15.2 (12.0-16.0) gm/dL Hct 45.5 (33.0-51.0) % MCV 88 (80-100) fL MCH 29 (26-34) pg MCHC 33 (32-36) gm/dL RDW Coeff of Estrada 12.8 (11.5-15.5) % Plt Count 250 (140-440) K/uL Neut % (Auto) 78.4 H (42.0-72.0) % Lymph % (Auto) 12.6 L (20-44) % Gentry % (Auto) 4.3 (0.0-11.0) % Eos % (Auto) 3.7 (0.0-7.0) % Baso % (Auto) 0.4 (0.0-3.0) % Neut # (Auto) 5.50 (1.7-7.0) K/uL Lymph # (Auto) 0.90 (0.90-2.90) K/uL Gentry # (Auto) 0.30 (0.00-0.90) K/UL Eos # (Auto) 0.26 (0.00-0.50) K/uL Baso # (Auto) 0.03 (0.00-0.30) K/uL Abs Immat Gran (auto) 0.04 (0.00-0.30) K/uL Imm/Tot Granulo (auto) 0.6 % Sodium 137 (135-149) mmol/L Potassium 3.5 L (3.6-5.1) mmol/L Chloride 97 (96-114) mmol/L Carbon Dioxide 28 (20-32) mmol/L Anion Gap 12 (7-15) mEq/L BUN 9 (5-24) mg/dL Creatinine 0.7 (0.5-1.5) mg/dL Estimated Creat Clear 85.34 Estimated GFR 113 ml/min Glucose 130 H (60-115) mg/dL Calcium 10.0 (8.4-10.6) mg/dL Discharge Plan Discharge Clinical Impression: Headache Patient Disposition: Home, Self-Care Condition: Stable Additional Instructions: Take medication as needed and indicated. Follow up with MD return if worsening. Prescriptions: New cyclobenzaprine 10 mg tablet 10 mg PO TID Qty: 15 0RF ondansetron HCl 4 mg tablet 4 mg PO Q6H Qty: 10 0RF ketorolac 10 mg tablet 10 mg PO Q8H 5 Days Qty: 15 0RF No Action multivitamin [Daily Multi-Vitamin] Tablet 1 tab PO QDAY omega-3 fatty acids 1,250 mg capsule 1,250 mg PO QDAY vitamin [id number] acid 500-400 mcg tablet 1 tab PO QDAY Rx Instructions: administer with a meal Ca carbonate-mag oxide-vit C 400 mg calcium -117 mg-167 mg tablet PO lorazepam [Ativan] 0.5 mg tablet 0.5 mg PO BID PRN (Reason: anxiety) Qty: 20 0RF nitrofurantoin monohyd/m-cryst [Macrobid] 100 mg capsule 100 mg PO Q12H 5 Days Qty: 10 0RF Rx Instructions: must administer with a meal/food Follow Up/Referrals: Lopez Mao MD [Primary Care Provider] - Stand Alone Forms: MyHealth Info Instructions
[2024-12-18] MEDS: KETOROLAC 15 MG/ML inj IVP (15:26)
[2024-12-18] MEDS: 0.9 % SODIUM CHLORIDE 500 ML 500 ML IV (15:27)
[2024-12-18 15:33] LABS: Basophils Absolute Auto 0.03 K/uL (0.00-0.30); Basophils Percent Auto 0.4 % (0.0-3.0); Eosinophils Absolute Auto 0.26 K/uL (0.00-0.50); Eosinophils Percent Auto 3.7 % (0.0-7.0); Hematocrit 45.5 % (33.0-51.0); Hemoglobin* 15.2 gm/dL (12.0-16.0); Immature Granulocytes Abs Auto 0.04 K/uL (0.00-0.30); Immature Granulocytes Pct Auto 0.6 %; Lymphocytes Percent Auto 12.6 % (20-44); Mean Corpuscular HGB Conc 33 gm/dL (32-36); Mean Corpuscular Hemoglobin 29 pg (26-34); Mean Corpuscular Volume 88 fL (80-100); Monocytes Percent Auto 4.3 % (0.0-11.0); Neutrophils Percent Auto 78.4 % (42.0-72.0); Platelet Count* 250 K/uL (140-440); RDW Coefficient of Variation % 12.8 % (11.5-15.5); White Blood Count* 6.98 K/uL (4.50-11.00)
--- OUTSIDE RECORDS SUMMARY | 2024-12-18 15:42 | XMS_ITS | Clinical Summary ---
Author Organization [facility] Address [facility] [place] [address] Care Team Providers Care Government Service Executive Name Role Phone Josee, Ailyn Solorzano MD [...] Pap/pelvic -06-28-07 Thyroid- 06-28-07 Hep B-05-28-01, 07-30-01 Wyvazup-05-83-07 Other acne 06/28/2007 05/24/2012 Other ill-defined disorder [...] Uncle stents place d Heart Disease Mother [place] Hypertension Mother Other Paternal Grandfather alzthim ers Diabetes Paternal Uncle Relation Name Status Comments Brother Alive x1 Father Alive Maternal Aunt Maternal Grandfather Alive Maternal Grandmother (Age 86) Maternal Uncle Mother (Age 59) [place], pulmon nemesio embolism Paternal Grandfather (Age 80's) [...] on file Legal Sex Female 5:26 AM CUFF SETTER OVERLOCK Gender Identity Not on file Sexual Orientation [...] 33w 4d F [facility] Location:[facility] Last Filed Vital Signs Vital Sign Reading Time Taken Comments Blood Pressure 108/69 08/29/2023 10:02 AM CUFF SETTER OVERLOCK Pulse 80 08/29/2023 10:02 AM CUFF SETTER [employer]LOCK Temperature 36.8 C (98.2 F) 08/20/2023 9:13 AM CUFF [employer]TER OVERLOCK Respiratory Rate 18 08/28/2019 6:36 AM CUFF SETTER OVERLOCK Oxygen Saturation 98% 08/29/2023 10:02 AM CUFF SETTER OVERLOCK Inhaled Oxygen Concentration - - Weight 87 kg (191 lb 12.8 oz) 08/29/2023 10:02 A M CUFF [employer]TER [employer]LOCK Height 159.4 cm (5' 2.75) 08/29/2023 10:[address] Body Mass Index 34.25 08/29/2023 10:02 AM CUFF SETTER OVERLOCK Plan of Treatment Health Maintenance Due Date [...] Procedure Name Priority Date/Time Associated Diagnosis Comments NOTCHING PRESS OPERATOR THIN PREP PAP SCREEN IMAGED Routine 04/12/2021 2:30 PM CDT ANTI HIV 1/2 Routine 06/15/2015 2:28 PM CDT Encounter for supervision of other normal in first trimester ANTI HCV Routine 10/15/2010 12:09 PM CUFF SETTER OVERLOCK Vaginal irritation from Last 3 Months or Most Recently Relevant to Health Maintenance Results * NOTCHING PRESS OPERATOR THIN PREP PAP SCREEN IMAGED (04/12/2021 2:30 PM CDT) Case Report Gynecologic Cytology Report Case: [id number] Authorizing Provider: Andreina Pelaez Collected: 04/12/2021 1430 MMD Ordering Location: [facility] Received: 04/14/2021 1003 First Screen: Abigail Le Specimen: NOTCHING PRESS OPERATOR ThinPrep Vial Screening, Cervical/Vaginal 04/22/2021 12:07 PM CDT [facility] INTERPRETATION/ RESULT NEGATIVE FOR INTRAEPITHELIAL LESION OR MALIGNANCY (NIL) (none) 04/22/2021 12:07 PM CDT [facility] IMEN ADEQUACY Satisfactory for evaluation Endocervical component present 04/22/2021 12:07 PM CDT [facility] HPV REQUEST HPV and PAP 04/22/2021 12:07 PM CDT [facility] Date of LMP 01/28/2021 04/22/2021 12:07 PM CDT [facility] Menstrual Status 04/22/2021 12:07 PM CDT [facility] Additional Information 04/22/2021 12:07 PM CDT [facility] Comment: Interpreted at [facility] - [address], [place] [address] Automated Review Successful 04/22/2021 12:07 PM CDT [facility] Comment:Specimen processed s uccessfully by automated automation tester device, ThinPrep Imaging System, [employer] ANCILLARY TESTING NOTCHING PRESS OPERATOR HPV Ordered, Please see separate report 04/22/2021 12:07 PM CDT [facility] Note The pap test is [...] and malignant lesions. 04/22/2021 12:07 PM CDT [facility] Other (Cervical/Vagina l) 04/12/2021 2:30 PM CDT 04/14/2021 10:03 AM CDT us Andreina Pelaez MD PATHOLOGY/CYTOLOGY Final Result [facility] [address] [place] [address], [place] * ANTI HIV 1/2 (06/15/2015 2:28 PM CDT) HIV-1/HIV-2 ANTIBODY Non-Reacti ve Non-Reacti ve 06/15/2015 7:48 PM CDT [facility] Blood specimen (specimen) BLOOD SPECIMEN / Unknown Venipuncture / Unknown 06/15/2015 2:28 PM CDT 06/15/2015 2:28 PM CDT [facility]ative [facility] 06/15/2015 7:48 PM CDT HIV-1 p24 and HIV-1/HIV-2 Ab not detected us Elsie Jack ASSOC[employer] F inal Result [facility] [address] [place] [address], [place] * ANTI HCV (10/15/2010 12:09 PM CUFF SETTER OVERLOCK) ANTI HCV Non-reacti ve Blood specimen (specimen) BLOOD SPECIMEN / Unknown 10/15/2010 12:09 PM CUFF SETTER OVERLOCK 10/15/2010 11:59 AM CUFF SETTER OVERLOCK us Husam Rodas DO SEND OUTS Final Res ult LABORATORY [place]NAL ZIP [id number] [place] [address] from Last 3 Months or Most Recently Relevant to Health Maintenance Insurance [facility] Advance Directives Documents on File Type Date Recorded Patient Superintendent Tests Expl anation Healthcare Directive 10/04/2011 * Full [...] 11:27 PM 10/03/2011 7:41 PM Care Teams Government Service Executive Relationship Specialty Start Date End Date Ailyn Tripp [place] [address] PCP - General Family Practice 11/23/15
[2024-12-18 15:43] LABS: Slide Review Reflex No
[2024-12-18 15:45] LABS: Chloride* 97 mmol/L (96-114); Potassium* 3.5 mmol/L (3.6-5.1); Sodium* 137 mmol/L (135-149)
[2024-12-18 15:48] LABS: Anion Gap 12 mEq/L (7-15); Blood Urea Nitrogen* 9 mg/dL (5-24); Carbon Dioxide* 28 mmol/L (20-32); Creatinine* 0.7 mg/dL (0.5-1.5); Est. Creatinine Clearance* 85.34; Estimated Glomerular Filt Rate 113 ml/min; Glucose* 130 mg/dL (60-115)
[2024-12-18 16:51] VITALS: BP 123/80; PULSE 93; RESP 14; O2SAT 96
== END 2024-12-18 16:57 | disposition home or self-care (01) ==
PROVIDERS: Emergency Provider Emergency Medicine Emergency Medical Services; PCP Family Medicine
DX: R51.9 Headache, unspecified (principal)
CPT/HCPCS: 36415; 80048; 85025; 96374; 99284; J1885; J7030

== ENCOUNTER 2025-03-03 10:02 | Outpatient (CLI) | payer OTHER, SELFPAY ==
--- NOTE | 2025-03-03 10:15 | CRLHL7_ITS ---
For Patients: As a result of the Century Cures Act, medical imaging exams and procedure reports are released immediately into your electronic medical record. You may view this report before your referring provider. If you have questions, please contact your health care provider. Indication: Headaches. Technique: Noncontrast sagittal T1, axial FLAIR, T2, diffusion weighted sequences are provided. Compared to prior study from September 15, 2011 Findings: The ventricles, sulci and gyri are normal size, shape and contour for age. The midline structures are centrally located with no evidence of shift. There are no suspicious intra or extra-axial fluid collections. No region of restricted diffusion. Expected flow voids in the cavernous carotids and basilar artery. Mild scattered foci of increased T2 signal within the anterior centrum semiovale that are non-specific. Impression: 1. No radiographic evidence of acute intracranial abnormalities. 2. Mild scattered supratentorial white matter change that is non-specific. Differential considerations include changes related to diabetes, hypertension, collagen vascular disease or migranous headaches. These lesions do not appear typical for a demyelinating process. Dictated by Darrius Albrecht MD @ 03/03/2025 11:02:17 AM (Electronically Signed)
== END 2025-03-03 10:03 | disposition home or self-care (01) ==
LOC: MRI 10:06
PROVIDERS: PCP Family Medicine; Visit Provider Internal Medicine
DX: R51.9 Headache, unspecified (principal); G93.9 Disorder of brain, unspecified
CPT/HCPCS: 70551